=== PATIENT | male | born 1950 | race Caucasian/White ===

== ENCOUNTER 2017-04-02 10:01 | Inpatient (IN) | payer BC, MEDICARE ==
[~2017-04-02] VITALS: Ht 182.9 cm; Wt 112.6 kg
[~2017-04-02 10:01] MED LIST: DICL75TA PO; MULT-65 PO; PRAV20TA2 PO
[2017-04-02] MEDS ORDERED: ceFAZolin 2 GM PREMIX 50 ML ONE (11:53)
[2017-04-02] MEDS ORDERED: DEXAMETHASONE SOD PHOS 20 MG/5 ML VIAL ONE (11:53)
[2017-04-02] MEDS ORDERED: SODIUM CHLOR 0.9% 250 ML INJ 250 ML ONE (11:54)
[2017-04-02] MEDS ORDERED: VANCOMYCIN HCL 1000 MG VIAL ONE (11:54)
[2017-04-02] MEDS ORDERED: VANCOMYCIN 1000 MG/NS 250 ML (for <70 kg) IV SCH ×2 (12:00)
[2017-04-02] MEDS ORDERED: CHLORHEXIDINE GLUCONATE 4% SOLN 120 ML BTL TOPICAL SCH (12:00)
[2017-04-02] MEDS ORDERED: INSULIN HUMAN REGULAR 1,000 UNITS/10 ML VIAL SQ PRN (12:00)
[2017-04-02] MEDS ORDERED: METOPROLOL TARTRATE 25 MG TAB PO PRN (12:00)
[2017-04-02] MEDS ORDERED: SODIUM CHLORID 0.9% 500 ML IV PRN (12:00)
[2017-04-02] MEDS ORDERED: POVIDONE IODINE 5% (ANTISEPSIS KIT) 4 APPLICATIONS EACH NARE PRN (12:00)
[2017-04-02] MEDS ORDERED: ceFAZolin 2 GM PREMIX 50 ML IV SCH (12:00)
[2017-04-02] MEDS ORDERED: LACTATED RINGER'S 1000 ML IV PRN (12:00)
[2017-04-02] MEDS ORDERED: CHLORHEXIDINE GLUCONATE 2 % 1 PACK (2 CLOTHS) TOPICAL PRN (12:00)
[2017-04-02] MEDS ORDERED: POVIDONE IODINE 7.5% SCRUB 118 ML BOTTLE TOPICAL SCH (12:00)
[2017-04-02] MEDS ORDERED: DEXAMETHASONE SOD PHOS 20 MG/5 ML VIAL IV SCH (12:00)
[2017-04-02] MEDS ORDERED: GENTAMICIN SULFATE 80 MG/2 ML VIAL ONE (12:09)
[2017-04-02] MEDS ORDERED: FAMOTIDINE 20 MG/2 ML VIAL ONE (12:37)
[2017-04-02] MEDS ORDERED: ACETAMINOPHEN 1000 MG/100 ML 100 ML IV ONE (12:37)
[2017-04-02] MEDS ORDERED: TRANEXAMIC ACID IV SCH ×2 (13:00→16:30)
[2017-04-02] MEDS ORDERED: TRANEXAMIC PERI-ARTICULAR 3,000 MG/NS 100 ML P-ARTICULR SCH ×2 (13:00)
[2017-04-02] MEDS ORDERED: EXPAREL PERI-ARTICULAR INJECTION (TOTAL VOL. 60 ML) P-ARTICULR ONE ×2 (13:00)
[2017-04-02] MEDS ORDERED: SODIUM CHLORIDE 0.9% IV SCH ×2 (13:00→16:30)
--- NOTE | 2017-04-02 13:18 | HHI.DCPOC ---
Discharge Care Plan Diagnosis: (1) Primary localized osteoarthrosis, pelvic region and thigh Your Health Problems Are: Difficulty with ADL Goals to Promote Your Health * To prevent worsening of your condition and complications * To maintain your health at the optimal level Directions to Meet Your Goals Take your medications as prescribed Follow your dietary instruction Follow activity as directed Keep your appointments as scheduled Take your immunizations and boosters as scheduled If your symptoms worsen call your PCP, if no PCP go to Urgent Care Center or Emergency Room Smoking is Dangerous to Your Health. Avoid second hand smoke Call the 24-hour hour crisis hotline for domestic abuse at David Loomis Apr 02, 2017 13:18
--- NOTE | 2017-04-02 13:19 | HHI.FF ---
Face to Face Verification Diagnosis: (1) Primary localized osteoarthrosis, pelvic region and thigh Physical Therapy Gait training, Safety evaluation, Transfer training, bed to chair Hip: Total hip, Protocol: Right Right LE Weight Bearing: WB as tolerated Nursing RN: 3 days/week x 2 weeks Nursing: Luis Eduardo teaching, Dressing changes Dressing Changes: Daily dressing change I have seen patient Vinayak Ayers on 04/02/17. My clinical findings support the need for the requested home health care services because: Limited ability to care for self High risk of falls I certify that my clinical findings support that this patient is homebound because: Post-op weakness Unsteady gait/balance David Loomis Apr 02, 2017 13:19
[2017-04-02] MEDS ORDERED: WALKER WHEELS/F1 MIS (13:20)
[2017-04-02] MEDS ORDERED: COMMODE 3-IN-11 MIS (13:20)
--- NOTE | 2017-04-02 14:33 | EKG ---
Date Performed: 04/02/2017 Time Performed: 11:14:19 PTAGE: 66 years EKG: Sinus rhythm PATTERN CONSISTENT WITH PULMONARY DISEASE LEFT ANTERIOR FASCICULAR BLOCK ABNORMAL ECG NO PREVIOUS TRACING DOCTOR: Jeff Flood Interpretating Date/Time 04/02/2017 14:31:40
[2017-04-02] MEDS ORDERED: ceFAZolin INJ 1,000 MG VIAL IV ONE (14:47)
[2017-04-02] MEDS ORDERED: HYDR-3288 PO (16:28)
[2017-04-02] MEDS ORDERED: ENOX40P SQ (16:28)
[2017-04-02] MEDS ORDERED: ASPI81CH37 CHEW (16:29)
[2017-04-02] MEDS ORDERED: ONDANSETRON HCL 4 MG/2 ML VIAL IVP PRN (16:30)
[2017-04-02] MEDS ORDERED: DO NOT ADM ANY ANTICOAGULANT DRUGS PRN (16:30)
[2017-04-02] MEDS ORDERED: SODIUM CHLORIDE 0.9% FLUSH 5 ML FLUSH IVF PRN (16:30)
[2017-04-02] MEDS ORDERED: Post-op Orders (for Pharmacy) MISC XX ONE (16:30)
[2017-04-02] MEDS ORDERED: MORPHINE SULFATE 4 MG/ML INJ IV PUSH PRN (16:30)
[2017-04-02] MEDS ORDERED: ACETAMINOPHEN/HYDROcodone 325 MG/10 MG TAB PO PRN (16:30)
[2017-04-02] MEDS ORDERED: diphenhydrAMINE HCL 50 MG/ML VIAL IV PUSH PRN (16:30)
[2017-04-02] MEDS ORDERED: BISACODYL 10 MG SUPP RECTAL PRN (16:30)
[2017-04-02] MEDS: SODIUM CHLOR 0.9% 1000 ML INJ 1,000 ML IV SCH (17:00)
[2017-04-02] MEDS: ceFAZolin 2 GM PREMIX 50 ML IV SCH ×2 (17:00→22:46)
[2017-04-02] MEDS ORDERED: *morphine SULFATE 8 MG/ML PERIprocedure ONLY ONE ×2 (17:07→17:43)
--- NOTE | 2017-04-02 18:00 | RADRPT ---
EXAM DATE/TIME: 04/02/2017 17:12 [place] COMPARISON: No previous studies available for comparison. INDICATIONS : Post op right hip arthroplasty revision MEDICAL HISTORY : None. SURGICAL HISTORY : Right hip arthropasty ENCOUNTER: Initial ACUITY: 1 day PAIN SCORE: 0/10 LOCATION: Right hip FINDINGS: The patient is status post a total hip arthroplasty with a bipolar prosthesis. Prosthesis is well-sea renee. Alignment is anatomic. A fracture is not appreciated. CONCLUSION: Anatomic alignment. Ramsey Walker MD FACR Board Certified Radiologist. This report was verified electronically.
[2017-04-02] MEDS: ACETAMINOPHEN/HYDROcodone 325 MG/10 MG TAB PO PRN ×2 (18:30→22:47)
[2017-04-02 19:45] VITALS: BP 132/77; PULSE 94; RESP 17; TEMP 98.6; O2SAT 96
[2017-04-02] MEDS ORDERED: ZOLPIDEM TARTRATE 5 MG TAB PO PRN (21:00)
[2017-04-03] VITALS (7 sets, daily range): BP systolic 97–130; BP diastolic 65–82; PULSE 75–82; RESP 17–18; TEMP 96.8–98.5; O2SAT 94–98
[2017-04-03] MEDS: ceFAZolin 2 GM PREMIX 50 ML IV SCH (06:10)
[2017-04-03] MEDS: ACETAMINOPHEN/HYDROcodone 325 MG/10 MG TAB PO PRN ×3 (06:17→21:20)
--- NOTE | 2017-04-03 08:07 | PD.ORT.PN ---
Subjective Post Op Day #: 1 Subjective Remarks doing well. pain less than expected. Objective Vitals Vital Signs Date Time Temp Pulse Resp B/P (MAP) Pulse Ox O2 Delivery O2 Flow Rate FiO2 04/03/17 04:41 96.8 77 17 107/65 (79) 95 04/03/17 00:20 97.4 82 17 116/73 (87) 94 04/02/17 19:45 98.6 94 17 132/77 (95) 96 04/02/17 17:45 78 16 128/80 (96) 98 Room Air 04/02/17 17:30 86 16 131/87 (102) 96 Room Air 04/02/17 17:15 84 16 111/65 (80) 98 Nasal Cannula 2 04/02/17 17:12 16 04/02/17 17:00 90 16 165/72 (103) 99 Nasal Cannula 2 04/02/17 16:47 98.1 91 16 151/93 (112) 97 Nasal Cannula 2 04/02/17 11:15 98.2 82 18 137/92 (107) 98 I/O 04/02/17 04/02/17 04/02/17 04/03/17 04/03/17 04/03/17 07:00 15:00 23:00 07:00 15:00 23:00 Intake Total 50 ml 3418 ml 530 ml Output Total 2500 ml 1400 ml Balance 50 ml 918 ml -870 ml Intake Oral 460 ml 480 ml IV Total 50 ml 158 ml 50 ml Other 2800 ml Output Urine Total 1500 ml 1400 ml Estimated Blood Loss 1000 ml Objective Remarks in bed, nad incision no erythema, no drainage neg homans nvi Assessment & Plan Ortho Post Op Day #: 1 Problem List: Assessment and Plan s/p Revision R AMRIANNE wbat - posterior hip precautions daily dressing changes lovenox PT d/c planning home with [facility] and pt rx in chart f/up dr. aguilera 2 weeks David Loomis Apr 03, 2017 08:07
[2017-04-03 08:35] LABS: HEMATOCRIT 39.7 % (39.0-51.0); MEAN CELL VOLUME 93.6 FL (80.0-100.0); MEAN CORPUSCULAR HEMOGLOBIN 31.8 PG (27.0-34.0); PLATELET COUNT 187 TH/MM3 (150-450); RED BLOOD COUNT 4.23 MIL/MM3 (4.50-5.90); RED CELL DISTRIBUTION WIDTH 13.4 % (11.6-17.2); REVIEW FLAG FINAL; WHITE BLOOD COUNT 9.3 TH/MM3 (4.0-11.0)
[2017-04-03 09:17] LABS: BICARBONATE 26.9 MEQ/L (21.0-32.0); POTASSIUM 3.9 MEQ/L (3.5-5.1)
[2017-04-03] MEDS: SODIUM CHLORIDE 0.9% FLUSH 5 ML FLUSH IVF SCH ×2 (11:00→21:21)
[2017-04-03] MEDS: SODIUM CHLOR 0.9% 1000 ML INJ 1,000 ML IV SCH ×2 (12:26→21:22)
[2017-04-03] MEDS ORDERED: ENOXAPARIN SODIUM 40 MG/0.4 ML SYRINGE SQ SCH (16:00)
--- NOTE | 2017-04-03 19:39 | PD.CONS ---
HPI Service [facility] Hospital[facility] Consult Requested By Dr. Mendoza Reason for Consult Medical management Primary Care Physician Chip Simmons M.D. Diagnoses: History of Present Illness This is a 66-year-old male who presented to [facility] for elective revision of the right total hip arthroplasty. The patient underwent the said revision on 04/02/17. Patient states that he feels very good. Denies chest pain, short of breath, fevers, chills, cough, dysuria. Review of Systems As per history of present illness, other systems reviewed by me and negative Past Family Social History Allergies: Coded Allergies: No Known Allergies (Unverified , 04/02/17) Past Medical History Hyperlipidemia Past Surgical History Tonsillectomy Left hip replacement 3 years ago. Right hip replacement 3 Reported Medications Reported Meds & Active Scripts Active Aspirin Low Dose (Aspirin) 81 Mg Chew 81 Mg CHEW BID 30 Days Lovenox Inj (Enoxaparin Sodium) 40 Mg/0.4 Ml Syr 40 Mg SQ DAILY Surprise (Hydrocodone-Acetaminophen) 7.5-325 mg Tab 1-2 Tab PO Q6H PRN Reported Multi-Vitamin Daily (Multiple Vitamin) 1 Tab Tab 1 Tab PO DAILY Diclofenac Sodium DR (Diclofenac Sodium) 75 Mg Tabdr 75 Mg PO DAILY Pravastatin 20 Mg Tab 20 Mg PO DAILY Active Ordered Medications Current Medications Medications (Trade) Dose Ordered Sig/Fang Route Start Time Stop Time Status Last Admin Lactated Ringer's 1,000 ml @ 30 mls/hr Q24H PRN IV 04/02/17 12:00 04/05/17 11:59 04/02/17 11:30 Sodium Chloride 500 ml @ 30 mls/hr [id number] PRN IV 04/02/17 12:00 04/05/17 11:59 (Lopressor) 25 mg SUPERVISOR [employer] REPAIR PRN PO 04/02/17 12:00 04/05/17 11:59 (Betadine 5% Antisepsis Kit) 1 applic [employer] REPAIR PRN EACH NARE 04/02/17 12:00 04/05/17 11:59 04/02/17 11:30 (Chlorhexidine 2% Cloth) 3 pack [employer] REPAIR PRN TOPICAL 04/02/17 12:00 04/05/17 11:59 04/02/17 11:30 (NovoLIN R INJ) See Protocol Table ... SU[employer] REPAIR PRN SQ 04/02/17 12:00 04/05/17 11:59 (Betadine 7.5% Scrub) 1 applic ONCE TOPICAL 04/02/17 12:00 04/05/17 11:59 04/02/17 12:10 (Hibiclens 4% Top Soln) 1 applic ONCE TOPICAL 04/02/17 12:00 04/05/17 11:59 04/02/17 11:30 Cefazolin Sodium/ Dextrose 50 ml @ 100 mls/hr SU[employer] REPAIR IV 04/02/17 12:00 04/05/17 11:59 04/02/17 12:14 Vancomycin HCl 1000 mg/Sodium Chloride 250 ml @ 250 mls/hr SUPER[employer]OR [employer] REPAIR IV 04/02/17 12:00 04/05/17 11:59 04/02/17 12:14 Sodium Chloride 1,000 ml @ 100 mls/hr Q10H IV 04/02/17 16:26 04/02/17 17:00 (NS Flush) 2 ml UNSCH PRN IVF 04/02/17 16:30 (NS Flush) 2 ml BID IVF 04/02/17 21:00 04/03/17 11:00 (Lovenox Inj) 40 mg Q24H SQ 04/03/17 16:00 04/12/17 16:01 04/03/17 16:27 (Morphine Inj) 3 mg Q3H PRN IV PUSH 04/02/17 16:30 (Surprise 10-325 Mg) 1 tab Q4H PRN PO 04/02/17 16:30 04/03/17 16:27 (Surprise 10-325 Mg) 2 tab Q6H PRN PO 04/02/17 16:30 (Theragran M Tab) 1 tab BID PO 04/03/17 21:00 06/02/17 20:59 (Zofran Inj) 4 mg Q6H PRN IVP 04/02/17 16:30 (Colace) 100 mg BID PO 04/03/17 21:00 (Ambien) 5 mg HS PRN PO 04/02/17 21:00 (Dulcolax Supp) 10 mg DAILY PRN RECTAL 04/02/17 16:30 (Benadryl Inj) 25 mg Q6H PRN IV PUSH 04/02/17 16:30 Family History Patient's mother of a stroke. Patient's father of an GA at age 77. Social History Patient is a nonsmoker who quit 25 years ago. The patient takes alcohol daily. He states he drinks a couple beers per day. Denies illicit drug use. The patient is and has 3 children. Physical Exam Vital Signs Vital Signs Date Time Temp Pulse Resp B/P (MAP) Pulse Ox O2 Delivery O2 Flow Rate FiO2 04/03/17 16:00 98.5 82 18 117/82 (94) 98 04/03/17 12:07 97.3 81 18 97/71 (80) 96 04/03/17 08:14 97.1 75 18 130/78 (95) 98 04/03/17 04:41 96.8 77 17 107/65 (79) 95 04/03/17 00:20 97.4 82 17 116/73 (87) 94 04/02/17 19:45 98.6 94 17 132/77 (95) 96 Physical Exam GENERAL: This is a well-nourished, well-developed patient, in no apparent distress. SKIN: No rashes, ecchymoses or lesions. Cool and dry. HEAD: Atraumatic. Normocephalic. No temporal or scalp tenderness. EYES: Pupils equal round and reactive. Extraocular motions intact. No scleral icterus. No injection or drainage. ENT: Nose without bleeding, purulent drainage or septal hematoma. Throat without erythema, tonsillar hypertrophy or exudate. Uvula midline. Airway patent. NECK: Trachea midline. No JVD or lymphadenopathy. Supple, nontender, no meningeal signs. CARDIOVASCULAR: Regular rate and rhythm without murmurs, gallops, or rubs. RESPIRATORY: Clear to auscultation. Breath sounds equal bilaterally. No wheezes , rales, or rhonchi. GASTROINTESTINAL: Abdomen soft, non-tender, nondistended. No hepato-splenomegaly , or palpable masses. No guarding. MUSCULOSKELETAL: Extremities without clubbing, cyanosis, or edema. There is tenderness to palpation of the right hip, covered by dressing which is C/D/I. NEUROLOGICAL: Awake and alert. Cranial nerves II through XII intact. Motor and sensory grossly within normal limits. Five out of 5 muscle strength in all muscle groups. Normal speech. Laboratory Laboratory Tests Test 04/03/17 07:00 White Blood Count 9.3 Red Blood Count 4.23 Hemoglobin 13.5 Hematocrit 39.7 Mean Corpuscular Volume 93.6 Mean Corpuscular Hemoglobin 31.8 Mean Corpuscular Hemoglobin Concent 34.0 Red Cell Distribution Width 13.4 Platelet Count 187 Mean Platelet Volume 8.2 Blood Urea Nitrogen 13 Creatinine 0.95 Random Glucose 124 Calcium Level 8.3 Sodium Level 138 Potassium Level 3.9 Chloride Level 103 Carbon Dioxide Level 26.9 Anion Gap 8 Estimat Glomerular Filtration Rate 80 Result Diagram: 04/03/17 0700 04/03/17 0700 Imaging Last Impressions Hip and Pelvis X-Ray 04/02/17 0000 Signed Impressions: Service Date/Time: Sunday, April 02, 2017 17:12 - CONCLUSION: Anatomic alignment. Ramsey Walker MD Assessment and Plan Problem List: (1) Osteoarthritis of left hip ICD Code: M16.12 - Osteoarthritis of left hip Status: Acute Plan: The patient is postop day 1 after revision of the right total hip arthroplasty. There is some reported loosening of right total hip. Management as per orthopedic surgery Continue pain control as per orthopedic surgery recommendations, the patient is getting Surprise and morphine IV. (2) Hyperlipidemia ICD Code: E78.5 - Hyperlipidemia Status: Acute Plan: Continue statin (3) Hyperglycemia ICD Code: R73.9 - Hyperglycemia, unspecified Plan: No prior history of diabetes. Likely elevated secondary to stress. Monitor Accu-Cheks, will obtain hemoglobin A1c. Assessment and Plan DVT prophylaxis: Lovenox subcutaneously as per orthopedic surgery. GI prophylaxis: Docusate, Zofran as needed for nausea Code Status Full code Discussed Condition With Patient, RN. Jos Dukes MD Apr 03, 2017 19:39
[2017-04-03] MEDS: MULTIVITAMINS/MINERALS THERAPEUTIC TAB PO SCH (21:20)
[2017-04-03] MEDS: DOCUSATE SODIUM 100 MG CAP PO SCH (21:20)
[2017-04-04 00:45] VITALS: BP 124/74; PULSE 76; RESP 17; TEMP 98.5; O2SAT 97
[2017-04-04] MEDS: ACETAMINOPHEN/HYDROcodone 325 MG/10 MG TAB PO PRN ×3 (04:12→13:21)
[2017-04-04 04:30] VITALS: BP 117/81; PULSE 86; RESP 18; TEMP 97.8; O2SAT 96
[2017-04-04 07:39] LABS: MEAN CELL VOLUME 93.1 FL (80.0-100.0); MEAN CORPUSCULAR HEMOGLOBIN 31.7 PG (27.0-34.0); MEAN CORPUSCULAR HGB CONC 34.1 % (32.0-36.0); PLATELET COUNT 127 TH/MM3 (150-450); RED BLOOD COUNT 3.97 MIL/MM3 (4.50-5.90); RED CELL DISTRIBUTION WIDTH 13.4 % (11.6-17.2); REVIEW FLAG FINAL; WHITE BLOOD COUNT 7.5 TH/MM3 (4.0-11.0)
[2017-04-04 07:43] VITALS: BP 113/71; PULSE 83; RESP 17; TEMP 98.4; O2SAT 97
[2017-04-04 08:24] LABS: BICARBONATE 27.1 MEQ/L (21.0-32.0); POTASSIUM 3.8 MEQ/L (3.5-5.1)
[2017-04-04] MEDS: SODIUM CHLOR 0.9% 1000 ML INJ 1,000 ML IV SCH (08:26)
[2017-04-04] MEDS: DOCUSATE SODIUM 100 MG CAP PO SCH (08:38)
[2017-04-04] MEDS: SODIUM CHLORIDE 0.9% FLUSH 5 ML FLUSH IVF SCH (08:38)
[2017-04-04] MEDS: MULTIVITAMINS/MINERALS THERAPEUTIC TAB PO SCH (08:38)
[2017-04-04 11:38] VITALS: BP 115/69; PULSE 83; RESP 17; TEMP 98.7; O2SAT 96
--- NOTE | 2017-04-04 11:47 | PD.ORT.PN ---
Subjective Post Op Day #: 2 Subjective Remarks doing well. muscles sore. Objective Vitals Vital Signs Date Time Temp Pulse Resp B/P (MAP) Pulse Ox O2 Delivery O2 Flow Rate FiO2 04/04/17 11:38 98.7 83 17 115/69 (84) 96 04/04/17 07:43 98.4 83 17 113/71 (85) 97 04/04/17 04:30 97.8 86 18 117/81 (93) 96 04/04/17 00:45 98.5 76 17 124/74 (91) 97 04/03/17 20:46 98 04/03/17 20:15 97.8 78 17 125/65 (85) 98 04/03/17 16:00 98.5 82 18 117/82 (94) 98 04/03/17 12:07 97.3 81 18 97/71 (80) 96 I/O 04/03/17 04/03/17 04/03/17 04/04/17 04/04/17 04/04/17 06:59 14:59 22:59 06:59 14:59 22:59 Intake Total 530 ml 960 ml 720 ml Output Total 2400 ml 960 ml Balance -1870 ml 960 ml -240 ml Intake Oral 480 ml 960 ml 720 ml IV Total 50 ml Output Urine Total 2400 ml 960 ml # Voids 3 # Bowel Movements 0 0 Result Diagram: 04/04/17 0645 04/04/17 0645 Objective Remarks in bed, nad dressing c/d/i neg homans nvi Assessment & Plan Ortho Post Op Day #: 2 Problem List: Assessment and Plan s/p Revision R MARIANNE wbat - posterior hip precautions daily dressing changes lovenox PT d/c planning home with [facility] and pt - cleared today rx in chart f/up dr. aguilera 2 weeks David Loomis Apr 04, 2017 11:46
--- NOTE | 2017-04-04 13:54 | HHI.PR ---
Subjective Remarks pain controlled denies cp/sob denies fevers/chills no diarrhea eating well Objective Vitals Vital Signs Date Time Temp Pulse Resp B/P (MAP) Pulse Ox O2 Delivery O2 Flow Rate FiO2 04/04/17 11:38 98.7 83 17 115/69 (84) 96 04/04/17 07:43 98.4 83 17 113/71 (85) 97 04/04/17 04:30 97.8 86 18 117/81 (93) 96 04/04/17 00:45 98.5 76 17 124/74 (91) 97 04/03/17 20:46 98 04/03/17 20:15 97.8 78 17 125/65 (85) 98 04/03/17 16:00 98.5 82 18 117/82 (94) 98 I/O 04/03/17 04/03/17 04/03/17 04/04/17 04/04/17 04/04/17 07:00 15:00 23:00 07:00 15:00 23:00 Intake Total 530 ml 960 ml 720 ml Output Total 1400 ml 960 ml Balance -870 ml 960 ml -240 ml Intake Oral 480 ml 960 ml 720 ml IV Total 50 ml Output Urine Total 1400 ml 960 ml # Voids 3 # Bowel Movements 0 0 Result Diagram: 04/04/17 0645 04/04/17 0645 Imaging Last Impressions Hip and Pelvis X-Ray 04/02/17 0000 Signed Impressions: Service Date/Time: Sunday, April 02, 2017 17:12 - CONCLUSION: Anatomic alignment. Ramsey Walker MD Procedures GENERAL: This is a well-nourished, well-developed patient, in no apparent distress. SKIN: No rashes, ecchymoses or lesions. Cool and dry. HEAD: Atraumatic. Normocephalic. No temporal or scalp tenderness. EYES: Pupils equal round and reactive. Extraocular motions intact. No scleral icterus. No injection or drainage. ENT: Nose without bleeding, purulent drainage or septal hematoma. Throat without erythema, tonsillar hypertrophy or exudate. Uvula midline. Airway patent. NECK: Trachea midline. No JVD or lymphadenopathy. Supple, nontender, no meningeal signs. CARDIOVASCULAR: Regular rate and rhythm without murmurs, gallops, or rubs. RESPIRATORY: Clear to auscultation. Breath sounds equal bilaterally. No wheezes , rales, or rhonchi. GASTROINTESTINAL: Abdomen soft, non-tender, nondistended. No hepato-splenomegaly , or palpable masses. No guarding. MUSCULOSKELETAL: Extremities without clubbing, cyanosis, or edema. There is tenderness to palpation of the right hip, covered by dressing which is C/D/I. NEUROLOGICAL: Awake and alert. Cranial nerves II through XII intact. Motor and sensory grossly within normal limits. Five out of 5 muscle strength in all muscle groups. Normal speech. Medications and IVs Current Medications Medications (Trade) Dose Ordered Sig/Fang Route Start Time Stop Time Status Last Admin Lactated Ringer's 1,000 ml @ 30 mls/hr Q24H PRN IV 04/02/17 12:00 04/05/17 11:59 04/02/17 11:30 Sodium Chloride 500 ml @ 30 mls/hr [id number] PRN IV 04/02/17 12:00 04/05/17 11:59 (Lopressor) 25 mg BLINDSTITCH LAPEL PADDER PRN PO 04/02/17 12:00 04/05/17 11:59 (Betadine 5% Antisepsis Kit) 1 applic BL[employer]ITCH [employer] P[employer]DER PRN EACH NARE 04/02/17 12:00 04/05/17 11:59 04/02/17 11:30 (Chlorhexidine 2% Cloth) 3 pack BL[employer]ITCH LAP[employer] PADDER PRN TOPICAL 04/02/17 12:00 04/05/17 11:59 04/02/17 11:30 (NovoLIN R INJ) See Protocol Table ... BLINDSTITCH LAPEL PADDER PRN SQ 04/02/17 12:00 04/05/17 11:59 (Betadine 7.5% Scrub) 1 applic ONCE TOPICAL 04/02/17 12:00 04/05/17 11:59 04/02/17 12:10 (Hibiclens 4% Top Soln) 1 applic ONCE TOPICAL 04/02/17 12:00 04/05/17 11:59 04/02/17 11:30 Cefazolin Sodium/ Dextrose 50 ml @ 100 mls/hr BLINDSTITCH LAP[employer] PADDER IV 04/02/17 12:00 04/05/17 11:59 04/02/17 12:14 Vancomycin HCl 1000 mg/Sodium Chloride 250 ml @ 250 mls/hr BLINDSTITCH LAPEL PADDER IV 04/02/17 12:00 04/05/17 11:59 04/02/17 12:14 Sodium Chloride 1,000 ml @ 100 mls/hr Q10H IV 04/02/17 16:26 04/02/17 17:00 (NS Flush) 2 ml UNSCH PRN IVF 04/02/17 16:30 (NS Flush) 2 ml BID IVF 04/02/17 21:00 04/04/17 08:38 (Lovenox Inj) 40 mg Q24H SQ 04/03/17 16:00 04/12/17 16:01 04/03/17 16:27 (Morphine Inj) 3 mg Q3H PRN IV PUSH 04/02/17 16:30 (Rochester 10-325 Mg) 1 tab Q4H PRN PO 04/02/17 16:30 04/04/17 13:21 (Rochester 10-325 Mg) 2 tab Q6H PRN PO 04/02/17 16:30 (Theragran M Tab) 1 tab BID PO 04/03/17 21:00 06/02/17 20:59 04/04/17 08:38 (Zofran Inj) 4 mg Q6H PRN IVP 04/02/17 16:30 (Colace) 100 mg BID PO 04/03/17 21:00 04/04/17 08:38 (Ambien) 5 mg HS PRN PO 04/02/17 21:00 (Dulcolax Supp) 10 mg DAILY PRN RECTAL 04/02/17 16:30 (Benadryl Inj) 25 mg Q6H PRN IV PUSH 04/02/17 16:30 Urinary Catheter: No Vascular Central Line Catheter: No A/P Problem List: (1) Osteoarthritis of left hip ICD Code: M16.12 - Osteoarthritis of left hip Status: Acute Plan: The patient is postop day 2 after revision of the right total hip arthroplasty. There is some reported loosening of right total hip. Management as per orthopedic surgery Continue pain control as per orthopedic surgery recommendations, the patient is getting [place] and morphine IV. Patient being discharged home wbat - posterior hip precautions daily dressing changes (2) Hyperlipidemia ICD Code: E78.5 - Hyperlipidemia Status: Acute Plan: Continue statin. Follow up as an outpatient. (3) Hyperglycemia ICD Code: R73.9 - Hyperglycemia, unspecified Plan: No prior history of diabetes. Likely elevated secondary to stress. Monitor Accu-Cheks, will obtain hemoglobin A1c. 04/04 Hb A1c pending - october follow up as an outpatient, however blood sugars stable. Problem Qualifiers (1) Hyperlipidemia: Qualified Codes: E78.5 - Hyperlipidemia, unspecified Jos Dukes MD Apr 04, 2017 13:54
--- NOTE | 2017-04-04 14:34 | MD ---
cc: OTONIEL RENEE M.D. ADMISSION DATE: 04/02/2017 DISCHARGE DATE: 04/04/2017 ADMITTING DIAGNOSIS: Loose prosthesis, right total hip arthroplasty. DISCHARGE DIAGNOSIS: Loose prosthesis, right total hip arthroplasty. HISTORY OF PRESENT ILLNESS: Mr. Ayers is a 66-year-old male who presented to the [facility] for evaluation regarding his right hip pain. The patient states he has a history of a total hip arthroplasty approximately fifteen to twenty years ago and he has had increasing discomfort for the last two years. He notes last six months he has been feeling like his right hip is subluxing and he states the pain is aggravated by range of motion. He does have x-ray evidence of loosening of the right hip acetabular components. While in the office, the patient was counseled on his diagnosis and treatment options, risks, benefits, indications were discussed. The patient did elect to proceed with surgical intervention to include a revision right total hip arthroplasty. HOSPITAL COURSE: Date of surgery was 04/02/2017, revision right total hip arthroplasty with replacement of acetabular component. Postop after surgery, the patient was admitted to [facility] where he received appropriate medical management, pain control, DVT prophylaxis as well as physical therapy. DISCHARGE: Once being discharged from the hospital, the patient is cleared to go home where he will receive home health care and home physical therapy. He is in stable condition and he can weight bear as tolerated with posterior and anterior hip precautions. The patient has been provided prescriptions for pain control as well as DVT prophylaxis medication. The patient has also been provided a follow-up appointment in approximately two weeks from date of surgery. The patient has asked appropriate questions, which have been answered. The patient is cleared for discharge. Dictated by MAGGIE Colindres MD LISA Monaco/MAT /11:48 AM /2:30 PM
[2017-04-04 16:54] LABS: HEMOGLOBIN A1a 1.2 %; HEMOGLOBIN A1b 1.6 %; HEMOGLOBIN Ao 86.6 %; HEMOGLOBIN LA1C 1.9 %; HEMOGLOBIN P3 3.5 %
--- NOTE | 2017-04-17 21:23 | MP ---
cc: OTONIEL RENEE M.D. 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 PROCEDURE Revision right total hip arthroplasty acetabular component. SURGEON Dr. Betsy Renee RELEASE OF INFORMATION CLERK MAGGIE Godinez ANESTHESIA General. ESTIMATED BLOOD LOSS 200 mL COMPLICATIONS None. IMPLANTS USED DePuy JUSTIFICATION This patient has undergone previous right total hip arthroplasty over 15 years ago. He has had progressive increase in pain in the right hip and groin region. He has been followed by the undersigned at the [facility]. Clinical exam as well as x-ray confirmed evidence of loosening of the acetabular component of the total hip arthroplasty. He has a well fixed DePuy AML ingrown Press-Fit stem. He was counseled as to risks, benefits and alternatives to revision to the acetabular component. Risks were discussed which include but not limited to anesthesia, bleeding, infection, damage to nerves, blood vessels, fracture-dislocation, recurrent instability, continued pain, looseness, leg length discrepancies. Because of progression of symptoms, he did wish to proceed with surgery. PROCEDURE IN DETAIL A written consent was obtained. The patient identified by name, taken to the operating room, placed supine on the operating room table. General anesthesia was administered as well as 2 grams of IV Ancef and 1 gram of IV vancomycin. The patient was carefully turned to his left lateral decubitus position. A lateral arm roll was placed. All bony prominences and pressure points were well padded. The right hip and right lower extremity prepped and draped using isopropyl alcohol, Hibiclens solution and Chloraprep solution. After time-out was performed, a longitudinal incision was made over the posterolateral aspect of the right hip. The fascial layer was incised. The piriformis and capsule was incised and tied with #2 FiberWire suture. The hip was then dislocated in a posterior direction. A bone tamp was used to remove the metal femoral head. A capsular release was performed to allow for anterior placement of the femoral stem and allowed for exposure of the cup. The scar tissue and capsule was released around the cup and the cup was then removed. The cup was noted to be completely loose and unstable. Sequential reaming began at size 59, was carried through to size 64. Subsequently, a DePuy size 64 titanium three hole Press-Fit cup was implanted approximately 45 degrees of abduction and approximately 20 degrees of anteversion. Two additional screws were placed in the posterior superior quadrant of the acetabulum for additional fixation of the cup itself. A +4 high offset posterior high wall highly cross-linked polyethylene liner was then placed within the cup. This was impacted and tested for stability and capture. Trial head and neck combination were evaluated and the final 36 mm ceramic head was placed with the current implants. Leg lengths felt relatively symmetric. The hip could be flexed 90 degrees and internally rotated 70 degrees before evidence of posterior instability. Soft tissue tension felt appropriate. The surgical wound was thoroughly irrigated with sterile saline pulse lavage antibiotic impregnated solution. The piriformis and capsule was repaired with #2 FiberWire sutures. The fascial layer closed with #1 Vicryl suture. Subsequently layer with 2-0 Vicryl suture. Skin was closed with Dermabond. Sterile dressing applied. The patient tolerated the procedure well with no intraoperative complications noted. Keshav Loomis, physician environmental services assistant certified, was present during the entire procedure to include patient positioning and the procedure itself. The medical necessity of a physician environmental services assistant was indicated in this case due to the complexity of the procedure. He assisted with appropriate manipulation of the leg and also retraction of muscle, tendon, bone and neurovascular structures. He assisted with both removal of the loose components and also implantation of the new aspect of the component along with the new femoral head, liner and reduction of the hip. He has also assisted with deep soft tissue and wound closure. MD LISA Monaco/ /1:46 PM /9:02 PM
== END 2017-04-04 13:56 | disposition home health service (06) | DRG 468 ==
LOC: HSDI 10:01 → N06B 18:08
PROVIDERS: ADMIT Orthopaedic Surgery Sports Medicine; ATTEND Orthopaedic Surgery Sports Medicine
PROC: 0SP90JZ Removal of Synthetic Substitute from Right Hip Joint, Open Approach (ICD-10-PCS; 2017-04-02)
PROC: 0SR90JA Replacement of Right Hip Joint with Synthetic Substitute, Uncemented, Open Approach (ICD-10-PCS; principal; 2017-04-02 13:00)
DX: T84.030A Mechanical loosening of internal right hip prosthetic joint, initial encounter (principal); E66.9 Obesity, unspecified; E78.5 Hyperlipidemia, unspecified; Y83.1 Surgical operation with implant of artificial internal device as the cause of abnormal reaction of the patient, or of later complication, without mention of misadventure at the time of the procedure; R73.9 Hyperglycemia, unspecified; M16.12 Unilateral primary osteoarthritis, left hip; Z68.33 Body mass index [BMI] 33.0-33.9, adult
CPT/HCPCS: 73502; 80048; 83036; 85027; 86850; 86900; 86901; 93005; 94150; C9290; J0131; J0690; J1100; J1580; J1650; J2270; J3370; J7030; J7050; J7120